=== PATIENT | male | born 1955 | race American Indian/Alaskan Native ===

== ENCOUNTER 2016-12-22 12:06 | Emergency (ER) | payer OTHER ==
[2016-12-22] MEDS ORDERED: NACL 0.9% 1000 ML 1,000 ML IV ONE ×2 (12:18→14:13)
[2016-12-22 12:58] LABS: Basophils % (Auto) 1.1 % (0.0-1.8); Eosinophils % (Auto) 1.7 % (0.0-4.3); Hematocrit 43.7 % (35.5-45.6); Hemoglobin 14.9 gm/dl (11.8-15.2); Mean Corpuscular HGB Conc 34 % (32-34); Mean Corpuscular Hemoglobin 29 pg (28-32); Mean Corpuscular Volume 86 fl (84-94); Platelet Count 146 K/mm3 (140-440); Red Blood Count 5.09 M/mm3 (3.65-5.03); Red Cell Distribution Width 13.6 % (13.2-15.2); White Blood Count 5.7 K/mm3 (4.5-11.0)
[2016-12-22 13:11] LABS: INR 0.9 (0.87-1.13)
[2016-12-22 13:12] LABS: Partial Thromboplastin Time 30.8 Sec. (24.2-36.6)
[2016-12-22 13:18] LABS: Alanine Aminotransferase 25 units/L (7-56); Albumin 4.1 g/dL (3.9-5); Albumin/Globulin Ratio 1.2 %; Alkaline Phosphatase 87 units/L (35-129); Anion Gap 21 mmol/L; BUN/Creatinine Ratio 18.75; Blood Urea Nitrogen 15 mg/dL (9-20); Carbon Dioxide 22 mmol/L (22-30); Chloride 98.4 mmol/L (98-107); Glucose 323 mg/dL (75-100); Lipase 106 units/L (13-60); Potassium 4.7 mmol/L (3.6-5.0); Sodium 137 mmol/L (137-145); Total Protein 7.5 g/dL (6.3-8.2)
--- NOTE | 2016-12-22 14:19 | Emergency Department Report ---
ED Male HPI - General Chief complaint: Urogenital-Male Stated complaint: PROBLEMS WHEN URINATING /LT WAR PAIN/COUGHING UP B Time Seen by Provider: 12/22/16 14:13 Source: patient Mode of arrival: Ambulatory Limitations: No Limitations - History of Present Illness Initial comments: Pt is a 61 yr old male with no reported medical problems who presents with multiple complaints. Pt first c/o dysuria for the past month, L ear pain, and blood tinged sputum x 1 day. 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 Otherwise no fevers, chills, WORKMAN, dizziness, CP, SOB, abd pain, NVD, trauma, orthopnea, or sick contacts. Pt does report he saw his PMD in [place] for his left ear pain and was prescribed a nasal spray and some other Rx, but left it in his other truck and did not fill the Rx - Related Data Previous Rx's Medication Instructions Recorded Last Taken Type Cetirizine HCl [ZyrTEC] 10 mg PO DAILY #30 capsule 12/22/16 Unknown Rx Ciprofloxacin HCl [Ciprofloxacin 500 mg PO Q12HR #14 tab 12/22/16 Unknown Rx TAB] Fluticasone [Flonase] 1 spray NS QDAY #1 bottle 12/22/16 Unknown Rx Allergies Allergy/AdvReac Type Severity Reaction Status Date / Time No Known Allergies Allergy Verified 12/22/16 14:14 ED Review of Systems ROS: Stated complaint: PROBLEMS WHEN URINATING /LT WAR PAIN/COUGHING UP B Other details as noted in HPI Comment: All other systems reviewed and negative ED Past Medical Hx - Past Medical History Previous Medical History?: No - Surgical History Past Surgical History?: Yes Additional Surgical History: right hand biopsy - Social History Smoking Status: Former Smoker - Medications Home Medications: Home Medications Medication Instructions Recorded Confirmed Last Taken Type Cetirizine HCl [ZyrTEC] 10 mg PO DAILY #30 capsule 12/22/16 Unknown Rx Ciprofloxacin HCl [Ciprofloxacin 500 mg PO Q12HR #14 tab 12/22/16 Unknown Rx TAB] Fluticasone [Flonase] 1 spray NS QDAY #1 bottle 12/22/16 Unknown Rx ED Physical Exam - General Limitations: No Limitations General appearance: alert, in no apparent distress - Head Head exam: Present: atraumatic, normocephalic - Eye Eye exam: Present: normal appearance, PERRL, EOMI Pupils: Present: normal accommodation - ENT ENT exam: Present: normal exam, mucous membranes moist, TM's normal bilaterally , normal external ear exam - Neck Neck exam: Present: normal inspection - Respiratory Respiratory exam: Present: normal lung sounds bilaterally. Absent: respiratory distress - Cardiovascular Cardiovascular Exam: Present: regular rate, normal rhythm. Absent: systolic murmur, diastolic murmur, rubs, gallop - GI/Abdominal GI/Abdominal exam: Present: soft, tenderness (suprapubic), normal bowel sounds. Absent: distended, guarding, rebound, rigid - Rectal Rectal exam: Present: deferred - Extremities Exam Extremities exam: Present: normal inspection - Back Exam Back exam: Present: normal inspection - Neurological Exam Neurological exam: Present: alert, oriented X3 - Psychiatric Psychiatric exam: Present: normal affect, normal mood - Skin Skin exam: Present: warm, dry, intact, normal color. Absent: rash ED Course Vital Signs 12/22/16 12/22/16 12/22/16 12:13 13:57 14:00 Temperature 98.3 F Pulse Rate 87 Respiratory 20 20 Rate Blood Pressure 137/86 138/90 136/92 O2 Sat by Pulse 95 97 Oximetry 12/22/16 12/22/16 12/22/16 14:10 14:20 14:30 Temperature Pulse Rate Respiratory Rate Blood Pressure 136/92 148/94 143/94 O2 Sat by Pulse 97 97 97 Oximetry 12/22/16 12/22/16 12/22/16 14:44 14:50 15:00 Temperature Pulse Rate Respiratory Rate Blood Pressure 143/94 143/94 137/91 O2 Sat by Pulse 97 97 98 Oximetry 12/22/16 12/22/16 12/22/16 15:10 15:20 15:30 Temperature Pulse Rate Respiratory Rate Blood Pressure 143/94 143/94 143/94 O2 Sat by Pulse 97 99 98 Oximetry 12/22/16 15:40 Temperature Pulse Rate Respiratory Rate Blood Pressure 137/91 O2 Sat by Pulse 98 Oximetry ED Medical Decision Making - Lab Data Result diagrams: 12/22/16 12:35 12/22/16 12:35 - EKG Data -: EKG Interpreted by Ne - EKG Data 12/22/16 14:18 EKG 1221 normal sinus rhythm at 83 bpm, QTC 430ms, normal axis, no LVH, incomplete left bundle branch block, no ST changes, no STEMI - Medical Decision Making results discussed with the patient He is aware of his elevated blood glucose, likely has Diabetes Type II, advised him to follow up with his PMD Critical care attestation.: If time is entered above; I have spent that time in minutes in the direct care of this critically ill patient, excluding procedure time. ED Disposition Clinical Impression: Otitis, Dysuria, Hyperglycemia without ketosis Disposition: TO HOME OR SELFCARE Is pt being admited?: No Condition: Stable Instructions: Diabetes Mellitus Type 2 in Adults (ED), Otitis Media (ED), Dysuria (ED) Prescriptions: Cetirizine HCl [ZyrTEC] 10 mg PO DAILY #30 capsule Ciprofloxacin HCl [Ciprofloxacin TAB] 500 mg PO Q12HR #14 tab Fluticasone [Flonase] 1 spray NS QDAY #1 bottle Referrals: PRIMARY CARE, [Primary Care Provider] - 3-5 Days
[2016-12-22 14:33] LABS: Bacteria,Urine 1+ /HPF (Negative); Bilirubin,Urine NEG (Negative); Blood,Urine NEG (Negative); Ketones,Urine NEG (Negative); Leukocyte Esterase,Urine NEG (Negative); Mucus,Urine FEW /HPF; Nitrite,Urine NEG (Negative); Protein,Urine <15 mg/dL mg/dL (Negative); Urobilinogen,Urine < 2.0 mg/dL (<2.0); WBC,Urine < 1.0 /HPF (0.0-6.0)
[2016-12-22 15:51] VITALS: BP 137/91
--- NOTE | 2016-12-22 16:39 | XRay Report ---
AP CHEST: History: Chest pain. AP view of the chest demonstrates a normal mediastinal and cardiac contour with clear lungs and normal bony and soft tissue structures. IMPRESSION: Normal AP chest.
== END 2016-12-22 17:12 | disposition home or self-care (01) ==
LOC: ED 12:06
DX: H66.90 Otitis media, unspecified, unspecified ear (principal); R30.0 Dysuria
CPT/HCPCS: 36415; 71010; 80053; 81001; 82962; 83690; 83880; 85025; 85379; 85610; 85730; 86850; 86900; 86901; 93005; 93010; 99284